=== PATIENT | female | born 1980 | race Caucasian/White ===

== ENCOUNTER 2018-08-31 05:33 | Emergency (ER) | payer OTHER ==
[~2018-08-31] VITALS: Ht 160 cm; Wt 56.8 kg
[2018-08-31 05:38] VITALS: Ht 160 cm; Wt 56.8 kg
[2018-08-31] MEDS ORDERED: BUSPAR5 MG (05:39)
[2018-08-31] MEDS ORDERED: SKELAXIN800 MG (05:39)
[2018-08-31] MEDS ORDERED: MINOCYCLINE HCL75 M1 PO (06:03)
[2018-08-31] MEDS ORDERED: HYDROCODON-ACE1 EAC2 PO (06:04)
[2018-08-31 06:24] VITALS: BP 132/84
== END 2018-08-31 06:33 | disposition home or self-care (01) ==
LOC: D.ER 05:33
DX: L02.411 Cutaneous abscess of right axilla (principal)

== ENCOUNTER 2018-11-10 13:30 | Emergency (ER) | payer OTHER ==
[~2018-11-10] VITALS: Ht 160 cm; Wt 63.6 kg
[~2018-11-10 13:30] MED LIST: BUSPAR5 MG; HYDROCODON-ACE1 EAC2 PO; MINOCYCLINE HCL75 M1 PO; SKELAXIN800 MG
[2018-11-10 13:34] VITALS: Ht 160 cm; Wt 63.6 kg
[2018-11-10 14:06] LABS: APPEARANCE HAZY (CLEAR); BILIRUBIN NEGATIVE (NEGATIVE); COLOR YELLOW (YELLOW); GLUCOSE NEGATIVE (NEGATIVE); KETONE LARGE mg/dL (NEGATIVE); NITRITE NEGATIVE (NEGATIVE); PROTEIN NEGATIVE (NEGATIVE); SPECIFIC GRAVITY 1.025 (1.005-1.020); UROBILINOGEN NORMAL (NORMAL)
[2018-11-10 14:07] LABS: UDS - AMPHET POSITIVE QUAL (NEGATIVE); UDS - BARB NEGATIVE QUAL (NEGATIVE); UDS - BENZO NEGATIVE QUAL (NEGATIVE); UDS - COCAINE NEGATIVE QUAL (NEGATIVE); UDS - OPIATE NEGATIVE QUAL (NEGATIVE); UDS - PCP NEGATIVE QUAL (NEGATIVE); UDS - THC POSITIVE QUAL (NEGATIVE)
[2018-11-10 14:12] LABS: BASOPHILS 0.2 % (0-2); EOSINOPHILS 0 % (0-7); HEMATOCRIT 40.2 % (36.0-48.0); HEMOGLOBIN 14.4 g/dL (12-16); IMMATURE GRANULOCYTES 0.2 % (0-5); MCH 30.5 pg (26.0-34.0); MCHC 35.8 g/dL (31.0-37.0); MCV 85.2 fL (80.0-100.0); MEAN PLATELET VOLUME 9.3 fL (7.4-10.4); MONOCYTES 5.6 % (2-11); PLATELET COUNT 321 10x3/uL (130-400); RBC 4.72 10x6/uL (4.00-5.40); RDW 12.5 % (11.5-14.5); WBC 16.2 10x3/uL (4.8-10.8)
[2018-11-10 14:34] LABS: ALBUMIN 4.5 g/dL (3.4-5.0); ALKALINE PHOSPHATASE 65 U/L (46-116); ALT (SGPT) 16 U/L (10-68); BILIRUBIN - TOTAL 0.86 mg/dL (0.2-1.3); CALC OSMOLALITY 276 mosm/kg (275-300); CARBON DIOXIDE 19.1 mmol/L (21.0-32.0); CHLORIDE - SERUM 102 mmol/L (98-107); CREATININE - SERUM 0.8 mg/dL (0.6-1.3); GLUCOSE 128 mg/dL (74-106); SODIUM 137 mmol/L (136-145); UREA NITROGEN 15 mg/dL (7-18); eGFR NON AFRICAN AMERICAN 86 mL/min (90-120)
[2018-11-10 14:46] LABS: THYROID STIMULATING HORMONE 1.29 uIU/mL (0.36-3.74)
--- NOTE | 2018-11-10 15:12 | NUR ---
DR. PRITCHARD NOTIFIED AND REVIEWED PATIENT'S BEHAVIOR AND ASSESSMENT RESULTS. PT IS A LOW RISK PER DR. PRITCHARD ORDERS. DR. PRITCHARD STATED TO GIVE RESOURCES TO PT AT TIME OF DISCHARGE. NO FURTHER ORDERS AT THIS TIME. RESOURCES REVIEWED WITH PT AND SHE VERBALIZIED UNDERSTANDING.
[2018-11-10 16:31] VITALS: BP 143/80
== END 2018-11-10 16:35 | disposition home or self-care (01) ==
LOC: D.ER 13:30
PROVIDERS: Family Medicine
DX: F15.10 Other stimulant abuse, uncomplicated (principal); F41.9 Anxiety disorder, unspecified; F32.9 Major depressive disorder, single episode, unspecified